=== PATIENT | male | born 1980 | race Caucasian/White ===

== ENCOUNTER → 2016-08-02 | Outpatient (CLI) | payer OTHER | LOC: LAB 15:50 | DX: B18.2 Chronic viral hepatitis C (principal) | CPT/HCPCS: 80307 ==

== ENCOUNTER 2016-08-21 18:10 | Emergency (ER) | payer OTHER | END 2016-08-21 18:50 | disposition home or self-care (01) | LOC: ER1 18:10 | DX: G89.29 Other chronic pain (principal); M06.9 Rheumatoid arthritis, unspecified; I10 Essential (primary) hypertension; F17.210 Nicotine dependence, cigarettes, uncomplicated; E78.5 Hyperlipidemia, unspecified; Z88.5 Allergy status to narcotic agent | CPT/HCPCS: 99283 ==

== ENCOUNTER 2021-05-16 22:24 | Emergency (ER) | payer OTHER ==
[~2021-05-16 22:24] MED LIST: AUGMENTIN 875-1 EACH PO; BENADRYL 25MG C25 MG PO; CORTIZONE-1057 GM TP; IBUPROFEN800 MG PO; PREDNISONE 50 M50 MG PO; ZANTAC 150 MG150 MG GT; ZYVOX600 MG PO
[2021-05-17 00:47] LABS: HEMOGLOBIN 14.1 gm/dl (14.0-17.5); RED BLOOD COUNT 4.55 M/UL (4.20-5.50); WHITE BLOOD COUNT 17.8 K/UL (4.5-11.0)
[2021-05-17 01:21] LABS: BUN/CREATININE RATIO 16 (0-10)
[2021-05-17] MEDS ORDERED: OMNICEF 300 MG300 MG PO (06:12)
== END 2021-05-17 07:48 | disposition home or self-care (01) ==
LOC: ER1 22:24
PROVIDERS: Family Medicine
DX: J18.9 Pneumonia, unspecified organism (principal)
CPT/HCPCS: 70450; 71045; 80053; 80307; 81001; 82550; 82553; 83874; 84484; 85025; 85610; 93005; 96374; 99285; G0480; J2060; Q9967

== ENCOUNTER 2021-06-17 11:24 | Emergency (ER) | payer OTHER ==
[~2021-06-17 11:24] MED LIST changes: +OMNICEF 300 MG300 MG PO
[2021-06-17] MEDS ORDERED: AUGMENTIN 875-1 EACH PO (14:58)
[2021-06-17] MEDS ORDERED: FLONASE 0.05% N16 GM (14:58)
[2021-06-17] MEDS ORDERED: IBUPROFEN600 MG PO (14:58)
== END 2021-06-17 17:27 | disposition home or self-care (01) ==
LOC: ER1 11:24
DX: S02.2XXA Fracture of nasal bones, initial encounter for closed fracture (principal); S01.81XA Laceration without foreign body of other part of head, initial encounter; I10 Essential (primary) hypertension; W22.8XXA Striking against or struck by other objects, initial encounter; Y92.009 Unspecified place in unspecified non-institutional (private) residence as the place of occurrence of the external cause
CPT/HCPCS: 12011; 70450; 70486; 72072; 72125; 99284